=== PATIENT | male | born 1940 | race Caucasian/White ===

== ENCOUNTER 2017-10-30 21:53 | Inpatient (IN) | payer OTHER, MEDICARE ==
[~2017-10-30] VITALS: Ht 177.8 cm; Wt 107.0 kg
[~2017-10-30 21:53] MED LIST: CATAPRES0.2 MG PO; COZAAR50 MG PO; DECADRON4 M1 PO; INSPRA25 MG PO; LABETALOL HCL100 MG PO; LASIX20 MG PO; LASIX40 MG PO; LIDEX 0.05% CRE60 GM TP; LO-DOSE ASPIRIN81 M1 PO; MACULAR VITAMI1 EACH PO; NEURONTIN300 MG PO; NITROSTAT0.4 MG SL; NOVOLIN N100 UNITS/ SC; NOVOLIN,HU100 UNITS1 SC; PLAVIX75 MG PO; TYLENOL REGULA325 MG PO; ZETIA10 MG PO; ZYLOPRIM100 MG PO
[2017-10-31 06:48] VITALS: BP 196/88
[2017-10-31 16:35] VITALS: BP 179/68
[2017-11-01] VITALS (12 sets, daily range): BP systolic 125–165; BP diastolic 65–86
[2017-11-01 13:01] LABS: HEMATOCRIT 38.5 % (38.0-50.0); HEMOGLOBIN 12.6 G/DL (12.5-16.6); MCH 28.1 PG (29.0-34.0); MCHC 32.7 G/DL (30.0-36.0); MCV 85.7 FL (86-99); PLATELET COUNT 119 K/uL (156-360); RBC DIS.WIDTH-SD 46.7 % (39-53); RED BLOOD COUNT 4.49 M/uL (4.00-5.50); WHITE BLOOD COUNT 29.3 K/uL (4.1-10.2)
[2017-11-01 14:13] LABS: CHLORIDE 108 MEQ/L (99-109); CREATININE 1.1 MG/DL (0.6-1.3); GFR ESTIMATE (CALCULATED) > 59 mL/min/ (58.99-99999); GLUCOSE 188 mg/dL (70-99); POTASSIUM 5.9 MEQ/L (3.7-5.4); SODIUM 138 MEQ/L (136-147); UREA NITROGEN (BUN) 54 mg/dL (9-23)
[2017-11-02] VITALS (22 sets, daily range): BP systolic 97–180; BP diastolic 46–85
[2017-11-02 05:04] LABS: HEMATOCRIT 35.8 % (38.0-50.0); HEMOGLOBIN 11.8 G/DL (12.5-16.6); MCH 28.5 PG (29.0-34.0); MCV 86.5 FL (86-99); PLATELET COUNT 92 K/uL (156-360); RBC DIS.WIDTH-CV 15.4 % (11.8-14.6); RED BLOOD COUNT 4.14 M/uL (4.00-5.50); WHITE BLOOD COUNT 21.9 K/uL (4.1-10.2)
[2017-11-02 05:31] LABS: CHLORIDE 106 MEQ/L (99-109); CREATININE 1.4 MG/DL (0.6-1.3); GFR ESTIMATE (CALCULATED) 52 mL/min/ (58.99-99999); GLUCOSE 212 mg/dL (70-99); POTASSIUM 5.8 MEQ/L (3.7-5.4); SODIUM 140 MEQ/L (136-147); UREA NITROGEN (BUN) 53 mg/dL (9-23)
[2017-11-03] VITALS (13 sets, daily range): BP systolic 113–162; BP diastolic 54–72
[2017-11-03 05:20] LABS: BASOPHIL (%) 0.1 % (0-1); EOSINOPHIL (%) 0 % (0-5); HEMATOCRIT 31.2 % (38.0-50.0); HEMOGLOBIN 10.1 G/DL (12.5-16.6); IMMATURE GRANULOCYTE (%) 1.5 % (0.0-0.7); LYMPHOCYTE (%) 1.6 % (15-42); LYMPHOCYTE COUNT 0.3 K/uL (1.0-2.8); MCH 28.4 PG (29.0-34.0); MCHC 32.4 G/DL (30.0-36.0); MCV 87.6 FL (86-99); MONOCYTE (%) 5.1 % (3-12); MONOCYTE COUNT 0.9 K/uL (0-0.8); NEUTROPHIL (%) 91.7 % (45-76); NEUTROPHIL COUNT 15.8 K/uL (1.8-6.4); PLATELET COUNT 77 K/uL (156-360); RBC DIS.WIDTH-CV 15.1 % (11.8-14.6); RBC DIS.WIDTH-SD 48.4 % (39-53); RED BLOOD COUNT 3.56 M/uL (4.00-5.50); WHITE BLOOD COUNT 17.2 K/uL (4.1-10.2)
[2017-11-03 05:46] LABS: CHLORIDE 106 MEQ/L (99-109); CREATININE 1.2 MG/DL (0.6-1.3); GFR ESTIMATE (CALCULATED) > 59 mL/min/ (58.99-99999); MAGNESIUM 2.5 mg/dl (1.3-2.7); PHOSPHORUS 3.8 mg/dL (2.5-4.9); POTASSIUM 5.2 MEQ/L (3.7-5.4); SODIUM 137 MEQ/L (136-147); UREA NITROGEN (BUN) 60 mg/dL (9-23)
[2017-11-03 05:48] LABS: GLUCOSE 95 mg/dL (70-99)
[2017-11-04 03:39] VITALS: BP 163/72
[2017-11-04 07:21] LABS: BASOPHIL (%) 0 % (0-1); EOSINOPHIL (%) 0.1 % (0-5); HEMATOCRIT 30.3 % (38.0-50.0); HEMOGLOBIN 9.8 G/DL (12.5-16.6); IMMATURE GRANULOCYTE (%) 1.1 % (0.0-0.7); LYMPHOCYTE (%) 1.8 % (15-42); LYMPHOCYTE COUNT 0.3 K/uL (1.0-2.8); MCH 28.2 PG (29.0-34.0); MCHC 32.3 G/DL (30.0-36.0); MCV 87.3 FL (86-99); MONOCYTE (%) 4.9 % (3-12); MONOCYTE COUNT 0.7 K/uL (0-0.8); NEUTROPHIL (%) 92.1 % (45-76); NEUTROPHIL COUNT 13.9 K/uL (1.8-6.4); PLATELET COUNT 69 K/uL (156-360); RBC DIS.WIDTH-CV 14.8 % (11.8-14.6); RBC DIS.WIDTH-SD 47.5 % (39-53); RED BLOOD COUNT 3.47 M/uL (4.00-5.50); WHITE BLOOD COUNT 15.1 K/uL (4.1-10.2)
[2017-11-04 07:42] LABS: CHLORIDE 105 MEQ/L (99-109); GFR ESTIMATE (CALCULATED) > 59 mL/min/ (58.99-99999); GLUCOSE 84 mg/dL (70-99); PHOSPHORUS 3.3 mg/dL (2.5-4.9); POTASSIUM 4.9 MEQ/L (3.7-5.4); SODIUM 132 MEQ/L (136-147); UREA NITROGEN (BUN) 48 mg/dL (9-23)
[2017-11-04 07:49] LABS: MAGNESIUM 2.1 mg/dl (1.3-2.7)
[2017-11-04 08:35] VITALS: BP 156/72
[2017-11-04 12:23] VITALS: BP 168/86
[2017-11-04 16:14] VITALS: BP 180/78
[2017-11-04 18:15] VITALS: BP 168/80
[2017-11-04 19:27] LABS: APPEARANCE TURBID ((CLEAR)); BILIRUBIN NEGATIVE; BLOOD MODERATE; GLUCOSE (STRIP) NEGATIVE; KETONES NEGATIVE; LEUKOCYTES MODERATE; NITRITE NEGATIVE; PROTEIN (STRIP) 100; SPECIFIC GRAVITY 1.015 (1.000-1.030); UROBILINOGEN 0.2 MG/DL (0.2-1.0)
[2017-11-04 19:38] LABS: COLOR RED ((YELLOW))
[2017-11-04 19:39] LABS: BACTERIA 1+ /HPF; EPITHELIAL CELLS NONE SEEN /HPF; MUCUS NONE SEEN /LPF; RED BLOOD CELLS TNTC /HPF (0-5)
[2017-11-04 19:52] VITALS: BP 162/77
[2017-11-05] VITALS (7 sets, daily range): BP systolic 122–162; BP diastolic 60–76
[2017-11-05 06:06] LABS: BASOPHIL (%) 0.1 % (0-1); EOSINOPHIL (%) 0 % (0-5); HEMATOCRIT 30.4 % (38.0-50.0); HEMOGLOBIN 9.8 G/DL (12.5-16.6); IMMATURE GRANULOCYTE (%) 0.9 % (0.0-0.7); LYMPHOCYTE (%) 3.3 % (15-42); LYMPHOCYTE COUNT 0.4 K/uL (1.0-2.8); MCH 28.5 PG (29.0-34.0); MCHC 32.2 G/DL (30.0-36.0); MCV 88.4 FL (86-99); MONOCYTE (%) 5.9 % (3-12); MONOCYTE COUNT 0.8 K/uL (0-0.8); NEUTROPHIL (%) 89.8 % (45-76); PLATELET COUNT 65 K/uL (156-360); RBC DIS.WIDTH-CV 14.8 % (11.8-14.6); RBC DIS.WIDTH-SD 47.7 % (39-53); RED BLOOD COUNT 3.44 M/uL (4.00-5.50); WHITE BLOOD COUNT 13.4 K/uL (4.1-10.2)
[2017-11-05 06:40] LABS: CHLORIDE 106 MEQ/L (99-109); GFR ESTIMATE (CALCULATED) > 59 mL/min/ (58.99-99999); MAGNESIUM 2.2 mg/dl (1.3-2.7); PHOSPHORUS 3.5 mg/dL (2.5-4.9); SODIUM 136 MEQ/L (136-147); UREA NITROGEN (BUN) 46 mg/dL (9-23)
[2017-11-05 06:44] LABS: GLUCOSE 140 mg/dL (70-99)
[2017-11-05 18:07] LABS: ALBUMIN 2.7 G/DL (3.2-4.8)
[2017-11-06 04:22] VITALS: BP 137/76
[2017-11-06 05:49] LABS: BASOPHIL (%) 0.1 % (0-1); EOSINOPHIL (%) 0.2 % (0-5); HEMATOCRIT 31.6 % (38.0-50.0); HEMOGLOBIN 10.1 G/DL (12.5-16.6); IMMATURE GRANULOCYTE (%) 0.5 % (0.0-0.7); LYMPHOCYTE (%) 3.4 % (15-42); LYMPHOCYTE COUNT 0.4 K/uL (1.0-2.8); MCH 28.6 PG (29.0-34.0); MCV 89.5 FL (86-99); MONOCYTE (%) 5.5 % (3-12); MONOCYTE COUNT 0.6 K/uL (0-0.8); NEUTROPHIL (%) 90.3 % (45-76); NEUTROPHIL COUNT 10.3 K/uL (1.8-6.4); PLATELET COUNT 74 K/uL (156-360); RBC DIS.WIDTH-CV 15.1 % (11.8-14.6); RED BLOOD COUNT 3.53 M/uL (4.00-5.50); WHITE BLOOD COUNT 11.4 K/uL (4.1-10.2)
[2017-11-06 06:34] LABS: CHLORIDE 107 MEQ/L (99-109); GFR ESTIMATE (CALCULATED) > 59 mL/min/ (58.99-99999); MAGNESIUM 2.1 mg/dl (1.3-2.7); PHOSPHORUS 3.1 mg/dL (2.5-4.9); POTASSIUM 5.3 MEQ/L (3.7-5.4); SODIUM 135 MEQ/L (136-147); UREA NITROGEN (BUN) 48 mg/dL (9-23)
[2017-11-06 06:43] LABS: GLUCOSE 246 mg/dL (70-99)
[2017-11-06 08:01] VITALS: BP 161/76
[2017-11-06 12:17] VITALS: BP 141/69
[2017-11-06 15:58] VITALS: BP 139/62
[2017-11-06 19:57] VITALS: BP 107/55
[2017-11-06 23:36] VITALS: BP 129/52
[2017-11-07 04:09] VITALS: BP 141/65
[2017-11-07 05:36] LABS: BASOPHIL (%) 0.1 % (0-1); EOSINOPHIL (%) 0.5 % (0-5); EOSINOPHIL COUNT 0.1 K/uL (0-0.3); HEMOGLOBIN 9.1 G/DL (12.5-16.6); IMMATURE GRANULOCYTE (%) 0.6 % (0.0-0.7); LYMPHOCYTE (%) 2.8 % (15-42); LYMPHOCYTE COUNT 0.6 K/uL (1.0-2.8); MCHC 32.5 G/DL (30.0-36.0); MCV 89.2 FL (86-99); MONOCYTE (%) 5.6 % (3-12); MONOCYTE COUNT 1.1 K/uL (0-0.8); NEUTROPHIL (%) 90.4 % (45-76); NEUTROPHIL COUNT 17.5 K/uL (1.8-6.4); PLATELET COUNT 58 K/uL (156-360); RBC DIS.WIDTH-CV 15.1 % (11.8-14.6); RBC DIS.WIDTH-SD 49.1 % (39-53); RED BLOOD COUNT 3.14 M/uL (4.00-5.50); WHITE BLOOD COUNT 19.4 K/uL (4.1-10.2)
[2017-11-07 05:59] LABS: CHLORIDE 105 MEQ/L (99-109); CREATININE 1.1 MG/DL (0.6-1.3); GFR ESTIMATE (CALCULATED) > 59 mL/min/ (58.99-99999); GLUCOSE 193 mg/dL (70-99); MAGNESIUM 1.9 mg/dl (1.3-2.7); PHOSPHORUS 2.7 mg/dL (2.5-4.9); POTASSIUM 4.6 MEQ/L (3.7-5.4); SODIUM 135 MEQ/L (136-147); UREA NITROGEN (BUN) 49 mg/dL (9-23)
[2017-11-07 08:31] VITALS: BP 131/62
[2017-11-07 12:30] VITALS: BP 145/63
[2017-11-07 16:28] VITALS: BP 146/65
[2017-11-07 19:21] VITALS: BP 147/68
[2017-11-07 23:05] VITALS: BP 158/86
[2017-11-08 03:47] VITALS: BP 156/72
[2017-11-08 08:30] VITALS: BP 153/68
[2017-11-08 12:38] VITALS: BP 143/67
[2017-11-08 16:38] VITALS: BP 167/71
[2017-11-08 18:30] LABS: GLUCOSE 460 mg/dL (70-99)
[2017-11-08 19:38] VITALS: BP 138/64
[2017-11-08 23:44] VITALS: BP 142/66
[2017-11-09 03:26] VITALS: BP 133/62
[2017-11-09 05:50] LABS: BASOPHIL (%) 0.1 % (0-1); EOSINOPHIL (%) 1.3 % (0-5); EOSINOPHIL COUNT 0.1 K/uL (0-0.3); HEMATOCRIT 23.8 % (38.0-50.0); HEMOGLOBIN 7.9 G/DL (12.5-16.6); IMMATURE GRANULOCYTE (%) 0.6 % (0.0-0.7); LYMPHOCYTE COUNT 0.4 K/uL (1.0-2.8); MCH 29.3 PG (29.0-34.0); MCHC 33.2 G/DL (30.0-36.0); MCV 88.1 FL (86-99); MONOCYTE (%) 4.5 % (3-12); MONOCYTE COUNT 0.4 K/uL (0-0.8); NEUTROPHIL (%) 88.5 % (45-76); NEUTROPHIL COUNT 7.6 K/uL (1.8-6.4); PLATELET COUNT 68 K/uL (156-360); RBC DIS.WIDTH-CV 14.7 % (11.8-14.6); RBC DIS.WIDTH-SD 47.4 % (39-53); WHITE BLOOD COUNT 8.6 K/uL (4.1-10.2)
[2017-11-09 06:30] LABS: CHLORIDE 97 MEQ/L (99-109); CREATININE 0.9 MG/DL (0.6-1.3); GFR ESTIMATE (CALCULATED) > 59 mL/min/ (58.99-99999); GLUCOSE 360 mg/dL (70-99); POTASSIUM 5.1 MEQ/L (3.7-5.4); SODIUM 129 MEQ/L (136-147); UREA NITROGEN (BUN) 45 mg/dL (9-23)
[2017-11-09 07:10] VITALS: BP 138/78
[2017-11-09 10:43] VITALS: BP 136/68
[2017-11-09] MEDS ORDERED: BACTRIM,SEPT1 TABLET PO (15:20)
[2017-11-09] MEDS ORDERED: DILANTIN100 MG PO (15:21)
[2017-11-09] MEDS ORDERED: BISACODYL5 MG PO (15:23)
[2017-11-09 16:22] VITALS: BP 145/67
== END 2017-11-09 18:17 | disposition designated cancer center or children's hospital (05) | DRG 25 ==
LOC: ENRESERV 21:53 → CANRESERV 21:53 → 4WEST 10-31 05:55 → 2SOUTH 10-31 05:55 → ENRESERV 10-31 16:17 → 4WEST 10-31 16:33 → ENRESERV 11-03 18:21 → 3EAST 11-03 21:54
PROVIDERS: Emergency Medicine; Internal Medicine; Neurological Surgery
PROC: 00B00ZX Excision of Brain, Open Approach, Diagnostic (ICD-10-PCS; principal; 2017-10-31)
PROC: 5A09357 Assistance with Respiratory Ventilation, Less than 24 Consecutive Hours, Continuous Positive Airway Pressure (ICD-10-PCS; 2017-11-05)
PROC: 06HY33Z Insertion of Infusion Device into Lower Vein, Percutaneous Approach (ICD-10-PCS; 2017-11-06)
DX: C79.31 Secondary malignant neoplasm of brain (principal); G93.6 Cerebral edema; G97.51 Postprocedural hemorrhage of a nervous system organ or structure following a nervous system procedure; I62.01 Nontraumatic acute subdural hemorrhage; Y83.8 Other surgical procedures as the cause of abnormal reaction of the patient, or of later complication, without mention of misadventure at the time of the procedure; C78.02 Secondary malignant neoplasm of left lung; C78.01 Secondary malignant neoplasm of right lung; C78.7 Secondary malignant neoplasm of liver and intrahepatic bile duct; E87.1 Hypo-osmolality and hyponatremia; N39.0 Urinary tract infection, site not specified; B96.20 Unspecified Escherichia coli [E. coli] as the cause of diseases classified elsewhere; E86.0 Dehydration; G40.409 Other generalized epilepsy and epileptic syndromes, not intractable, without status epilepticus; C34.90 Malignant neoplasm of unspecified part of unspecified bronchus or lung; E11.65 Type 2 diabetes mellitus with hyperglycemia; G47.33 Obstructive sleep apnea (adult) (pediatric); G83.84 Todd's paralysis (postepileptic); R47.01 Aphasia; R47.81 Slurred speech; E66.01 Morbid (severe) obesity due to excess calories; D64.9 Anemia, unspecified; Z68.41 Body mass index [BMI] 40.0-44.9, adult; I10 Essential (primary) hypertension; I25.10 Atherosclerotic heart disease of native coronary artery without angina pectoris; K59.00 Constipation, unspecified; M10.9 Gout, unspecified; Z66 Do not resuscitate; Z85.528 Personal history of other malignant neoplasm of kidney; Z90.5 Acquired absence of kidney; Z92.3 Personal history of irradiation; Z95.5 Presence of coronary angioplasty implant and graft; Z82.49 Family history of ischemic heart disease and other diseases of the circulatory system; Z88.1 Allergy status to other antibiotic agents; Z82.3 Family history of stroke; Z87.891 Personal history of nicotine dependence
CPT/HCPCS: 70450; 77021; 80048; 81003; 82040; 82948; 83735; 84100; 84999; 85025; 85027; 85610; 85730; 86850; 86900; 86901; 86920; 87040; 87077; 87086; 87186; 87641; 88307; 88341 TC; 88342 TC; 92507 GN; 92523 GN; 94660; 97530 GO; 97530 GP; C1713; C1751; C1755; G0515 GN; J0360; J1100; J1165; J1815; J1953; J2250; J2270; J2405; J2765; J3480; J7030; J7050; J8540